=== PATIENT | female | born 1970 | race Asian ===

== ENCOUNTER 2017-05-12 07:12 | Emergency (ER) | payer OTHER ==
[~2017-05-12] VITALS: Ht 160 cm; Wt 90.7 kg
[2017-05-12] MEDS ORDERED: INSUINJ47 SC (07:24)
[2017-05-12] MEDS ORDERED: INVOKANA300 MG OR (07:24)
[2017-05-12] MEDS ORDERED: LORA1TAB17 PO (07:25)
[2017-05-12] MEDS ORDERED: TIZA4TAB5 PO (07:25)
[2017-05-12] MEDS ORDERED: LISI20TA11 PO (07:25)
[2017-05-12] MEDS ORDERED: BUSP15TAB2 PO (07:26)
[2017-05-12] MEDS ORDERED: ASPIRIN 81 LOW81 MG PO (07:26)
[2017-05-12] MEDS ORDERED: MOBIC15 MG PO (07:26)
[2017-05-12] MEDS ORDERED: AMIT25TA22 PO (07:27)
[2017-05-12] MEDS ORDERED: PANTPAK PO (07:27)
[2017-05-12] MEDS ORDERED: DICL75TA4 PO (07:28)
[2017-05-12] MEDS ORDERED: METO50TA63 PO (07:28)
[2017-05-12] MEDS ORDERED: TRAM50TA PO (07:30)
[2017-05-12] MEDS ORDERED: NEURONTIN800 MG PO (07:30)
[2017-05-12] MEDS ORDERED: FIORICET 50-3001 CAP PO (07:31)
[2017-05-12] MEDS ORDERED: VIIBRYD40 MG OR (07:31)
[2017-05-12] MEDS ORDERED: FISH OIL1 C10 PO (07:31)
[2017-05-12] MEDS ORDERED: FLAX SEED OIL PO (07:32)
[2017-05-12] MEDS ORDERED: ONDA4TAB3 PO (07:32)
[2017-05-12 08:42] LABS: PLATELET COUNT 291 K/uL (152-353)
[2017-05-12 08:49] LABS: SODIUM 140 mmol/L (136-145)
== END 2017-05-12 09:55 | disposition home or self-care (01) ==
LOC: ED 07:12
DX: J02.0 Streptococcal pharyngitis (principal); E11.9 Type 2 diabetes mellitus without complications
CPT/HCPCS: 80053; 83036; 85027; 87880; 96372; 99283; J0696

== ENCOUNTER 2018-06-27 22:28 | Emergency (ER) | payer OTHER ==
[~2018-06-27] VITALS: Ht 160 cm; Wt 91.6 kg
[~2018-06-27 22:28] MED LIST: AMIT25TA22 PO; ASPIRIN 81 LOW81 MG PO; BUSP15TAB2 PO; DICL75TA4 PO; FIORICET 50-3001 CAP PO; FISH OIL1 C10 PO; FLAX SEED OIL PO; INSUINJ47 SC; INVOKANA300 MG OR; LISI20TA11 PO; LORA1TAB17 PO; METO50TA63 PO; MOBIC15 MG PO; NEURONTIN800 MG PO; ONDA4TAB3 PO; PANTPAK PO; TIZA4TAB5 PO; TRAM50TA PO; VIIBRYD40 MG OR
[2018-06-27 22:45] VITALS: TEMP 98.8
[2018-06-28 00:11] VITALS: BP 151/84
== END 2018-06-28 00:08 | disposition home or self-care (01) ==
LOC: ED 22:28
DX: S90.122A Contusion of left lesser toe(s) without damage to nail, initial encounter (principal); W22.8XXA Striking against or struck by other objects, initial encounter; Y93.89 Activity, other specified; Y92.89 Other specified places as the place of occurrence of the external cause
CPT/HCPCS: 90471; 90715; 99282

== ENCOUNTER 2018-12-02 13:13 | Outpatient (CLI) | payer OTHER | END 2018-12-02 13:17 | disposition short-term general hospital (02) | LOC: AMB 13:13 | DX: R07.89 Other chest pain (principal); M79.632 Pain in left forearm; M79.631 Pain in right forearm; M25.571 Pain in right ankle and joints of right foot; M79.662 Pain in left lower leg; V49.9XXA Car occupant (driver) (passenger) injured in unspecified traffic accident, initial encounter; Y93.89 Activity, other specified; Y92.89 Other specified places as the place of occurrence of the external cause | CPT/HCPCS: A0425; A0427 ==

== ENCOUNTER 2018-12-02 13:21 | Emergency (ER) | payer OTHER ==
[~2018-12-02] VITALS: Ht 160 cm; Wt 91.6 kg
[2018-12-02 13:22] VITALS: TEMP 97.5
[2018-12-02 14:38] LABS: PLATELET COUNT 328 K/uL (152-353)
[2018-12-02 14:48] LABS: POTASSIUM 4.2 mmol/L (3.6-5.2)
[2018-12-02 17:11] VITALS: BP 153/95
== END 2018-12-02 17:18 | disposition home or self-care (01) ==
LOC: ED 13:21
PROVIDERS: Family Medicine
DX: S16.1XXA Strain of muscle, fascia and tendon at neck level, initial encounter (principal); S20.212A Contusion of left front wall of thorax, initial encounter; S20.211A Contusion of right front wall of thorax, initial encounter; S30.1XXA Contusion of abdominal wall, initial encounter; V43.52XA Car driver injured in collision with other type car in traffic accident, initial encounter; Y92.89 Other specified places as the place of occurrence of the external cause
CPT/HCPCS: 80053; 85027; 99284; J1815; J1885; J2405; Q9963

== ENCOUNTER 2019-06-19 00:53 | Emergency (ER) | payer OTHER ==
[~2019-06-19] VITALS: Ht 160 cm; Wt 91.6 kg
[2019-06-19 01:54] LABS: PLATELET COUNT 300 K/uL (152-353)
[2019-06-19 02:11] LABS: POTASSIUM 4.5 mmol/L (3.6-5.2)
[2019-06-19 03:53] VITALS: BP 129/76; TEMP 98.7
== END 2019-06-19 03:55 | disposition home or self-care (01) ==
LOC: ED 00:53
PROVIDERS: Hospitalist
DX: K52.89 Other specified noninfective gastroenteritis and colitis (principal); R11.2 Nausea with vomiting, unspecified; R19.7 Diarrhea, unspecified
CPT/HCPCS: 80053; 81000; 81025; 82150; 83690; 85027; 96365; 96375; 99284; J1885; J2405

== ENCOUNTER 2019-08-30 12:48 | Outpatient (CLI) | payer OTHER | END 2019-08-30 19:49 | disposition home or self-care (01) | LOC: RAD 12:48 | DX: M54.5 Low back pain (principal); M54.2 Cervicalgia; M54.6 Pain in thoracic spine ==

== ENCOUNTER 2019-09-10 04:23 | Emergency (ER) | payer OTHER ==
[~2019-09-10] VITALS: Ht 160 cm; Wt 97.1 kg
[2019-09-10 05:42] VITALS: BP 170/87; TEMP 98.1
== END 2019-09-10 05:44 | disposition home or self-care (01) ==
LOC: ED 04:23
DX: J18.9 Pneumonia, unspecified organism (principal); J02.9 Acute pharyngitis, unspecified
CPT/HCPCS: 87502; 87651; 94664; 99283

== ENCOUNTER 2020-09-29 09:37 | Outpatient (CLI) | payer OTHER | END 2020-09-29 19:02 | disposition home or self-care (01) | LOC: MRI 09:37 | DX: M25.551 Pain in right hip (principal); M25.512 Pain in left shoulder ==

== ENCOUNTER 2021-10-08 15:08 | Outpatient (CLI) | payer OTHER | END 2021-10-08 20:19 | disposition home or self-care (01) | LOC: MRI 15:08 | PROVIDERS: ATTEND Neurological Surgery | DX: M54.16 Radiculopathy, lumbar region (principal) ==

== ENCOUNTER 2022-04-25 11:02 | Outpatient (CLI) | payer OTHER | END 2022-04-25 19:02 | disposition home or self-care (01) | LOC: RAD 11:02 | PROVIDERS: ATTEND Physician Assistant | DX: M54.59 Other low back pain (principal) ==

== ENCOUNTER 2022-07-15 09:28 | Outpatient (CLI) | payer OTHER ==
[2022-07-15 10:12] LABS: PLATELET COUNT 329 K/uL (152-353)
[2022-07-15 10:31] LABS: POTASSIUM 4.8 mmol/L (3.6-5.2)
== END 2022-07-15 21:01 | disposition home or self-care (01) ==
LOC: LABW 09:28
PROVIDERS: ATTEND Nurse Practitioner Family
DX: I10 Essential (primary) hypertension (principal); R53.83 Other fatigue; F34.1 Dysthymic disorder; E11.9 Type 2 diabetes mellitus without complications
CPT/HCPCS: 36415; 80053; 80061; 82306; 83036; 84439; 84443; 85027; 85652; 86038; 86140; 86430

== ENCOUNTER 2023-04-08 22:29 | Emergency (ER) | payer OTHER ==
[~2023-04-08] VITALS: Ht 160 cm; Wt 83.5 kg
[2023-04-08 22:53] VITALS: TEMP 99.7
[2023-04-09 03:28] VITALS: BP 155/90
== END 2023-04-09 03:28 | disposition home or self-care (01) ==
LOC: ED 22:29
DX: J20.9 Acute bronchitis, unspecified (principal); J32.9 Chronic sinusitis, unspecified
CPT/HCPCS: 87502; 87635; 87651; 94664; 99283; U0003